=== PATIENT | male | born 1945 | race African-American/Black ===

== ENCOUNTER 2022-07-09 15:09 | Emergency (ER) | payer OTHER ==
[2022-07-09 16:48] LABS: #Eosinphils 0.1 10x3/uL (0.0-0.5); #Monocytes 0.6 10x3/uL (0.0-1.1); #Neutrophils 5.7 10x3/uL (1.5-8.4); %Basophils 0.4 % (0.0-2.0); %Eosinophils 0.9 % (0.0-6.0); %Lymphocytes 19.8 % (18.0-47.0); %Neutrophils 70.6 % (40.0-75.0); Hemoglobin 16.9 g/dL (13.5-17.5); Mean Corpuscular HGB CONC 34.1 g/dL (32.0-36.0); Mean Corpuscular Hemoglobin 27.5 pg (27.0-33.0); Mean Corpuscular Volume 80.5 fl (81.2-95.1); Mean Platelet Volume 10.3 fl (7.4-10.4); Platelet Count 167 10x3/uL (150-450); RBC Distribution Width 14.6 % (11.5-14.5); Red Blood Cell (RBC) Count 6.15 10x6/uL (4.32-5.72)
[2022-07-09 17:04] LABS: ALT (SGPT) 17 U/L (8-55); AST (SGOT) 16 U/L (5-34); Albumin 3.9 g/dL (3.4-4.8); Alkaline Phosphatase 59 U/L (40-110); Anion Gap 12 mmol/L (10-20); BUN (Urea Nitrogen) 30 mg/dL (8.4-25.7); Bilirubin, Total 0.4 mg/dL (0.2-1.2); Calc. Creatinine Clearance 0 mL/min (70-130); Calcium 9.1 mg/dL (7.8-10.44); Carbon Dioxide 26 mmol/L (23-31); Chloride 107 mmol/L (98-107); Estimated GFR 34; Globulin 3.1 g/dL (2.4-3.5); Glucose 139 mg/dL (83-110); Potassium 4.5 mmol/L (3.5-5.1); Sodium 140 mmol/L (136-145)
== END 2022-07-09 19:04 | disposition home or self-care (01) ==
LOC: CSHERS 15:09
DX: K92.1 Melena (principal); I25.10 Atherosclerotic heart disease of native coronary artery without angina pectoris; I25.2 Old myocardial infarction; E11.9 Type 2 diabetes mellitus without complications; E78.00 Pure hypercholesterolemia, unspecified; Z87.891 Personal history of nicotine dependence; Z79.899 Other long term (current) drug therapy; Z79.84 Long term (current) use of oral hypoglycemic drugs
CPT/HCPCS: 36415; 80053; 82274; 85025; 99283

== ENCOUNTER 2022-12-09 08:40 | Emergency (ER) | payer OTHER ==
[2022-12-09] MEDS ORDERED: Ketorolac Tromethamine 30 MG/ML VIAL ONE (09:10)
[2022-12-09] MEDS ORDERED: HYDROcodone/Acetaminophen 5/325 mg Tablet ONE (09:11)
[2022-12-09 09:22] LABS: Bilirubin Neg (Negative); Blood, Urine Negative (Negative); Clarity Clear (Clear); Glucose, Urine (Dipstick) >=1000 mg/dL (Negative); Ketone, Urine Negative (Negative); Leukocyte Negative (Negative); Nitrite Negative (Negative); Protein, Urine (Dipstick) Negative (Neg-Trace); Urobilinogen Normal mg/dL (Less than 2)
[2022-12-09 09:31] LABS: CAUTI Indications for Culture Pelvic or flank pain; RBC/HPF None Seen HPF (0-3); Squamous Epithelial 0-3 HPF (0-3); WBC/HPF None Seen HPF (0-3)
[2022-12-09 09:34] LABS: Bacteria/HPF None Seen HPF (None Seen)
[2022-12-09 09:35] LABS: Urine Culture Reflex No No
== END 2022-12-09 10:33 | disposition home or self-care (01) ==
LOC: CSHERS 08:40
DX: N43.3 Hydrocele, unspecified (principal); I25.10 Atherosclerotic heart disease of native coronary artery without angina pectoris; E78.00 Pure hypercholesterolemia, unspecified; I10 Essential (primary) hypertension; E11.9 Type 2 diabetes mellitus without complications; J44.9 Chronic obstructive pulmonary disease, unspecified; Z87.891 Personal history of nicotine dependence; Z79.899 Other long term (current) drug therapy
CPT/HCPCS: 36416; 76870; 81001; 93976; 96372; J1885

== ENCOUNTER 2023-07-08 17:48 | Emergency (ER) | payer OTHER ==
[2023-07-08] MEDS ORDERED: Acetaminophen 500 MG TAB ONE (18:25)
[2023-07-08 18:41] LABS: ALT (SGPT) 20 U/L (8-55); AST (SGOT) 16 U/L (5-34); Albumin 4.3 g/dL (3.4-4.8); Alkaline Phosphatase 79 U/L (40-110); Anion Gap 12 mmol/L (10-20); BUN (Urea Nitrogen) 27 mg/dL (8.4-25.7); Bilirubin, Total 0.6 mg/dL (0.2-1.2); Calc. Creatinine Clearance 0 mL/min (70-130); Calcium 8.9 mg/dL (7.8-10.44); Carbon Dioxide 23 mmol/L (23-31); Chloride 102 mmol/L (98-107); Estimated GFR 39; Globulin 3.2 g/dL (2.4-3.5); Glucose 130 mg/dL (83-110); Lipase 84 U/L (8-78); Potassium 4.4 mmol/L (3.5-5.1); Protein, Total 7.5 g/dL (5.8-8.1); Sodium 133 mmol/L (136-145)
[2023-07-08 18:42] LABS: Troponin I 0.017 ng/mL (< 0.028)
[2023-07-08 18:46] LABS: #Eosinphils 0.2 10x3/uL (0.0-0.5); #Monocytes 0.7 10x3/uL (0.0-1.1); #Neutrophils 7.4 10x3/uL (1.5-8.4); %Basophils 0.3 % (0.0-2.0); %Eosinophils 1.6 % (0.0-6.0); %Monocytes 6.9 % (0.0-10.0); %Neutrophils 71.9 % (40.0-75.0); Hematocrit 49.2 % (38.8-50.0); Hemoglobin 16.9 g/dL (13.5-17.5); Mean Corpuscular HGB CONC 34.3 g/dL (32.0-36.0); Mean Corpuscular Hemoglobin 27.1 pg (27.0-33.0); Mean Corpuscular Volume 78.8 fl (81.2-95.1); Mean Platelet Volume 10.2 fl (7.4-10.4); Platelet Count 181 10x3/uL (150-450); Red Blood Cell (RBC) Count 6.24 10x6/uL (4.32-5.72); White Blood Cell (WBC) Count 10.4 10x3/uL (3.5-10.5)
== END 2023-07-08 19:49 | disposition home or self-care (01) ==
LOC: CSHERS 17:48
DX: M94.0 Chondrocostal junction syndrome [Tietze] (principal); E11.9 Type 2 diabetes mellitus without complications; I10 Essential (primary) hypertension; J44.9 Chronic obstructive pulmonary disease, unspecified; E78.00 Pure hypercholesterolemia, unspecified; Z87.891 Personal history of nicotine dependence; Z79.899 Other long term (current) drug therapy; Z79.84 Long term (current) use of oral hypoglycemic drugs
CPT/HCPCS: 36415; 71045; 80053; 83690; 84484; 85025; 93005

== ENCOUNTER 2023-10-07 07:25 | Emergency (ER) | payer OTHER ==
[2023-10-07] MEDS ORDERED: Lidocaine 2% 6 ML (Jelly) SYR ONE (07:58)
[2023-10-07] MEDS ORDERED: Fluconazole 100 MG TAB PO SCH (09:00)
[2023-10-07 09:11] LABS: Bilirubin Neg (Negative); Blood, Urine Negative (Negative); Clarity Clear (Clear); Glucose, Urine (Dipstick) Normal (Negative); Ketone, Urine Negative (Negative); Leukocyte 100 (Negative); Nitrite Negative (Negative); Protein, Urine (Dipstick) 15 mg/dl (Neg-Trace); Specific Gravity, Urine 1.015 (1.005-1.030); Urobilinogen Normal mg/dL (Less than 2)
[2023-10-07 09:32] LABS: CAUTI Indications for Culture Dysuria,urgency,freq; RBC/HPF None Seen HPF (0-3); Squamous Epithelial 0-3 HPF (0-3)
[2023-10-07 09:33] LABS: Bacteria/HPF Rare-Few HPF (None Seen)
[2023-10-07 09:34] LABS: Urine Culture Reflex No No
[2023-10-07 23:45] LABS: Chlam.trachomatis by PCR,Urine Not Detected (NotDetected); GC N.gonorrhoeae PCR,UrineVOID Not Detected (NotDetected)
== END 2023-10-07 09:00 | disposition home or self-care (01) ==
LOC: CSHERS 07:25
DX: N47.6 Balanoposthitis (principal); E11.9 Type 2 diabetes mellitus without complications; J44.9 Chronic obstructive pulmonary disease, unspecified; Z87.891 Personal history of nicotine dependence
CPT/HCPCS: 36416; 81001; 87491; 87591; 99283

== ENCOUNTER 2024-02-22 10:03 | Emergency (ER) | payer OTHER | END 2024-02-22 11:11 | disposition home or self-care (01) | LOC: CSHERS 10:03 | DX: N47.2 Paraphimosis (principal); E11.9 Type 2 diabetes mellitus without complications; J44.9 Chronic obstructive pulmonary disease, unspecified; Z87.891 Personal history of nicotine dependence | CPT/HCPCS: 99283 ==